=== PATIENT | male | born 1960 | race Caucasian/White ===

== ENCOUNTER 2018-07-01 20:00 | Emergency (ER) | payer SELFPAY ==
--- NOTE | 2018-07-01 21:00 | RAD ---
RIGHT SHOULDER THREE VIEWS: 07/01/18 HISTORY: 57-year-old male with history of right shoulder pain after a fall. FINDINGS/IMPRESSION: Mild degenerative changes. Healed right rib fracture. No acute fracture or dislocation of the right s houlder. POS: [facility]
== END 2018-07-01 21:10 | disposition home or self-care (01) ==
LOC: SCSER 20:00
DX: S40.011A Contusion of right shoulder, initial encounter (principal); I10 Essential (primary) hypertension; W01.0XXA Fall on same level from slipping, tripping and stumbling without subsequent striking against object, initial encounter; Y92.69 Other specified industrial and construction area as the place of occurrence of the external cause